=== PATIENT | female | born 2000 ===

== ENCOUNTER 2023-01-12 11:37 | Emergency (ER) | payer MEDICAID, SELFPAY ==
[2023-01-12 11:39] VITALS: BP 89/56; PULSE 86; RESP 15; TEMP 36.8; O2SAT 97
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
[2023-01-12 12:22] LABS: Bilirubin Small (Negative); Blood Trace-intact (Negative); Clarity Sl Cloudy (Clear); Glucose Negative (Negative); Ketones Negative (Negative); Leukocyte Esterase Negative (Negative); Nitrite Negative (Negative); Specific Gravity >= 1.030 (1.005-1.025); Urobilinogen 0.2 mg/dL (Up to 0.2)
[2023-01-12 12:30] LABS: Bacteria Few HPF (Negative); C & S Indicated? No/Sq. Contamination; Casts 0-2 Hyaline LPF (Negative); Crystals Negative HPF (Negative); Epithelial Cells Many HPF (Negative); Mucus Moderate (Negative); RBC 0-2 HPF (0-2)
[2023-01-12 12:35] LABS: *AMPHETAMINES SCREEN URINE Negative (Negative); *BARBITURATES SCREEN URINE Negative (Negative); *BENZODIAZEPINES SCREEN URINE Negative (Negative); Cannabinoids THC Positive (Negative); Cocaine Screen,Urine Negative (Negative); METHADONE URINE SCREEN Negative (Negative); OPIATES URINE SCREEN Negative (Negative)
[2023-01-12 12:36] LABS: Tricyclic Antidepressants Negative (Negative)
--- NOTE | 2023-01-12 14:49 | CMSP_ITS ---
Date of service: 01/12/23 Time of Service: 14:49 Care Management Safety Plan Status Status: Involuntary Reason for Wait Reason for Wait: Other (Awaiting 2nd Certification by Psychiatrist) Safety Plan Safety Plan: CHIEF COMPLAINT: Mandie presents in the ED via EMS for depression and suicidal ideation. While meeting with S[facility] Crisis Screener, Mandie becomes instantly agitated and yelling that she is going to blow her brains out and that she will meet with a psychiatrist, get discharged and then kill herself. Mandie is subsequently placed on EE status. She will remain at [facility] involuntarily and will be reassessed by [facility] twice daily until a placement is found for her. A Second Certification by Psychiatrist is expected to be perform ed within the next 24 hours. CM will continue to follow. INVOLUNTARY FOR INPATIENT PSYCHIATRIC STABILIZATION. Safety plan has been established to meet the needs of the patient, and consideration of the care team, to adhere to patient goals, identify restrictions based on behavioral status, address nutrition, and determine allowed personal belongings, tools for hygiene and personal care. Determine level of activity including ambulation, level of supervision, visitors, and determine privileges based on behaviors and level of engagement by pt. SAFETY PLAN: 1. Will remain on SI/HI precautions. Patient permitted to remain in own clothes. Clothing has been wanded by security. 2. Will remain in room under direct supervision of one-on-one staff at all times provided by CPSO, DANCER OR CHOREOGRAPHER, PATENT AGENT sewage treatment plant operator. 3. May have paper cups, plates, finger foods as well as a cardboard spoon to eat meals with. 4. Follow [facility] Management of the Admitted Behavioral Health Patient policy. 5. Comfort bath system only; shower permitted with escort at RN discretion. 6. No personal belongings with exception of clothing. 7. Visitors: None at this time 8. Activities: Soft cart items, television and other activities at RN discretion. 9. Bathroom privileges with supervision 10. Phone: May use [employer] hospital phone at RN discretion. 11. Due to INVOLUNTARY status, patient is being held at [facility] by the Department of Mental Health ([facility]) until 2nd certification by [facility] Psychiatrist can be performed (within 24 hours). Staff will provide de-escalation support (CPI) as needed. If patient wishes to leave [facility], staff will contact [facility] Crisis Screener ([phone]) and On-Call Flight Radio Operator ([phone]) as soon as possible. In the event of elopement, notify [facility] ([phone]). Patient is currently involuntarily at [facility]. [facility] Frontline Registrar [employer] will continue seeking placement. Please contact the Programmer [employer] Flight Radio Operator ) for any needed changes to Safety Plan. Safety plan has been provided to interdepartmental care team. Patient will be transported by chicken hanger at time of discharge.
--- NOTE | 2023-01-12 14:49 | PDOC.CMSAFE ---
Date of service: 01/12/23 Time of Service: 14:49 Care Management Safety Plan Status Status: Involuntary Reason for Wait Reason for Wait: Other (Awaiting 2nd Certification by Psychiatrist) Safety Plan Safety Plan: CHIEF COMPLAINT: Mandie presents in the ED via EMS for depression and suicidal ideation. While meeting with [facility] Crisis Screener, Mandie becomes instantly agitated and yelling that she is going to blow her brains out and that she will meet with a psychiatrist, get discharged and then kill herself. Mandie is subsequently placed on EE status. She will remain at [facility] involuntarily and will be reassessed by [facility] twice daily until a placement is found for her. A Second Certification by Psychiatrist is expected to be performed within the next 24 hours. CM will continue to follow. INVOLUNTARY FOR INPATIENT PSYCHIATRIC STABILIZATION. Safety plan has been established to meet the needs of the patient, and consideration of the care team, to adhere to patient goals, identify restrictions based on behavioral status, address nutrition, and determine allowed personal belongings, tools for hygiene and personal care. Determine level of activity including ambulation, level of supervision, visitors, and determine privileges based on behaviors and level of engagement by pt. SAFETY PLAN: 1. Will remain on SI/HI precautions. Patient permitted to remain in own clothes. Clothing has been wanded by security. 2. Will remain in room under direct supervision of one-on-one staff at all times provided by CPSO, GEOTHERMAL HVAC TECHNICIAN, CIVIL DESIGN SPECIALIST oracle distribution consultant. 3. May have paper cups, plates, finger foods as well as a cardboard spoon to eat meals with. 4. Follow [facility] Management of the Admitted Behavioral Health Patient policy. 5. Comfort bath system only; shower permitted with escort at RN discretion. 6. No personal belongings with exception of clothing. 7. Visitors: None at this time 8. Activities: Soft cart items, television and other activities at RN discretion. 9. Bathroom privileges with supervision 10. Phone: May use [place] hospital phone at RN discretion. 11. Due to INVOLUNTARY status, patient is being held at [facility] by the Department of Mental Health ([facility]) until 2nd certification by [facility] Psychiatrist can be performed (within 24 hours). Staff will provide de-escalation support (CPI) as needed. If patient wishes to leave [facility], staff will contact [facility] Crisis Screener ([phone]) and On-Call Brass Plater ([phone]) as soon as possible. In the event of elopement, notify [facility] ([phone]). Patient is currently involuntarily at [facility]. [facility] Frontline Manager [employer] will continue seeking placement. Please contact the Long Distance Billing Operator Brass Plater ([phone]) for any needed changes to Safety Plan. Safety plan has been provided to interdepartmental care team. Patient will be transported by shop laborer at time of discharge.
[2023-01-12] MEDS: LORazepam 1 MG TAB PO (16:32)
[2023-01-12] MEDS: LORazepam 2 MG/ML VIAL IM (18:29)
[2023-01-12] MEDS: diphenhydrAMINE 50 MG/ML VIAL 25 MG IM (18:29)
[2023-01-12] MEDS: Haloperidol 5 MG/ML VIAL IM (18:29)
[2023-01-12 18:38] LABS: Abs Immature Grans 0.03 10^3/uL (0.0-0.06); Absolute Basophil Count 0.04 10^3/uL (0.0-0.2); Absolute Eosinophil Count 0.11 10^3/uL (0.0-0.7); Absolute Monocyte Count 0.59 10^3/uL (0.1-0.8); Absolute Neutrophil Count 5.77 10^3/uL (1.2-6.7); Basophils % 0.4; Eosinophils % 1.2; HCT 38.8 % (36.0-46.0); HGB 13.6 g/dL (11.2-15.7); Immature Grans % 0.3; Lymphocytes % 31.4; MCH 31.3 pg (27.0-33.0); MCHC 35.1 % (32.0-36.0); MCV 89 fL (80-95); MPV 10.3 fL (8.0-11.0); Monocytes % 6.2; Neutrophils % 60.5; Platelet Count 302 10^3/uL (130-400); RBC 4.35 10^6/uL (3.93-5.22); RDW 11.8 % (11.7-14.6); RDW-SD 38.3 fL; WBC 9.54 10^3/uL (4.4-10.8)
[2023-01-12 19:03] LABS: ALT 44 U/L (14-59); AST 24 U/L (15-37); Albumin 4.2 g/dL (3.4-5.0); Alkaline Phosphatase 79 U/L (46-116); Anion Gap 12.6 mmol/L (3-11); BUN 6 mg/dL (7-18); Bilirubin, Total 0.6 mg/dL (0.2-1.0); CO2 22.4 mmol/L (21.0-32.0); CREATININE 0.9 mg/dL (0.55-1.02); Calcium 9.7 mg/dL (8.5-10.1); Chloride 104 mmol/L (98-107); Estimated GFR 93.86 (mL/min/1.73m2); Glucose 126 mg/dL (74-106); Magnesium 1.9 mg/dL (1.8-2.4); Potassium 3.7 mmol/L (3.5-5.1); Sodium 139 mmol/L (136-145); TSH (W/Ref FT4) 1.62 uIU/mL (0.36-3.74); Total Protein 7.9 g/dL (6.4-8.2)
[2023-01-12 19:06] LABS: ETHANOL BLOOD < 3.0 mg/dL (<10)
[2023-01-12 19:20] LABS: Acetaminophen < 2 ug/mL (10-30); Salicylate < 2.8 mg/dL (<2.8)
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
--- NOTE | 2023-01-12 22:33 | NUR.NOTE ---
Report received at 0029 by Jackie SANCHEZ, this RN assumed care at this time, pt is resting with eyes closed, even and unlabored respirations.
--- NOTE | 2023-01-13 07:19 | W.EDPROG ---
Date of service: 01/13/23 Time of Service: 07:19 Medical Decision Making Patient remained stable throughout the night. No interventions needed. Patient resting comfortably. Awaiting placement. Sign Out Sign Out Data: Sign Out Comment: on EE status for SI, had im benadryl/haldol/ativan given x1 during shift, second cert completed seeking placement. Last updated by Will Goode MD at 01/12/23 18:42 Discharge Plan Discharge Details Chief Complaint: PsychEval Clinical Impression: Suicidal ideations Primary Care Provider: Unknown,Unknown ED Provider: Ari Dietrich Home Meds and New Rx's Prescriptions: No Action ergocalciferol (vitamin D2) 50,000 unit Tablet 50,000 unit PO 7XD gabapentin 300 mg capsule 300 mg PO DAILY Entyvio 300 mg Recon Soln 300 mg IV [id number] Rx Instructions: EVERY OTHER MONTH IV
[2023-01-13] MEDS: LORazepam 2 MG/ML VIAL IM (09:10)
--- NOTE | 2023-01-13 10:42 | W.EDPROG ---
Date of service: 01/13/23 Time of Service: 10:42 Medical Decision Making -- Care was signed out by Dr. Dietrich. Please see his documentation and prior physician documentation regarding ED course. Plan at signout was to await for psychiatric treatment center placement. Patient is here involuntarily on EE status with both initial and second certification performed. --Patient tearful and having some anxiety. Requesting anxiolytic. Ativan 2 mg IM was excepted voluntarily. 1042 --notified by nursing that patient was having seizure-like activity. I assessed the patient and she was exhibiting full body shaking. Patient did have voluntary control of her arms during the episode. Suspected pseudoseizure. I advised patient that when she is able to calm down and verbalize we will be able to give her some additional anxiolytic. Patient was quickly able to stop shaking and verbalized that she would be interested in anxiolytic. -- Patient reassessed was much more calm and resting. 1259 --[place] [facility] physician Nelly Harris called, I relayed ED course including events from today, she will accept the patient in transfer. Awaiting bed availability. Sign Out Sign Out Data: Sign Out Comment: on EE status for SI, had im benadryl/haldol/ativan given x1 during shift, second cert completed seeking placement. Last updated by Will Goode MD at 01/12/23 18:42 Sign Out Comment: Patient is EE, patient stable throughout the night. Second certification is completed, currently seeking placement. Last updated by Ari Dietrich DO at 01/13/23 07:27 Discharge Plan Disposition Patient Disposition: Psychiatric Hospital/Unit Specific Psychiatric Facility: [facility] Discharge Details Clinical Impression: Suicidal ideations, Anxiety Primary Care Provider: Unknown,Unknown ED Provider: Kevin Henderson Home Meds and New Rx's Prescriptions: No Action ergocalciferol (vitamin D2) 50,000 unit Tablet 50,000 unit PO 7XD gabapentin 300 mg capsule 300 mg PO DAILY Entyvio 300 mg Recon Soln 300 mg IV [id number] Rx Instructions: EVERY OTHER MONTH IV
[2023-01-13] MEDS: diphenhydrAMINE 50 MG/ML VIAL 25 MG IM (10:56)
[2023-01-13] MEDS: Droperidol 5 MG/2 ML VIAL 2.5 MG IM (10:57)
[2023-01-13] MEDS: Midazolam 2 MG/2 ML VIAL 4 MG IM (10:57)
--- NOTE | 2023-01-13 10:58 | NUR.NOTE ---
Nursing Note: Pt appearing to have seizure-like activity while MH was in the room. MD Henderson in to asess the pt, medication orders given and administered by this RN.
[2023-01-13 11:17] VITALS: RESP 14
[2023-01-13 11:30] VITALS: RESP 16
--- NOTE | 2023-01-13 12:14 | PDOC.MHCN_ITS ---
Date of service: 01/13/23 Time of Service: 12:14 Mental Health Emergency Note Release [facility] release signed:: Yes Reason for Visit The client arrived to the ED on 01.12.23 via [place] ambulance. The EMT reported that they did not believe she would be treated well at [facility] so [facility] The client would not engage in a full assessment on the day of arrival or today so information is limited. This clinician and the ED provider wrote up EE paperwork on 01.12.23 and the client was held. Her seconde certification from [facility] was completed last night and the EE was upheld. In the last 2 weeks has the pt presented for ES prior to today?: Unknown Client Information Client is: New Well Housed: Yes Non Suicidal Self Injury Current: Yes, The client showed bruising on her chest area where she described she beats herself and cannot control it. History: yes, See above Safety Risk/Harm to Self or Others Current Ideation to Harm Self or Others: Yes to self. (The client is denying this today. ) Intent: no, has no intent. Plan: no.does not have a plan. History of suicide attempt: yes,history of suicide attempt reported. Details of previous suicide attempt: On per the client's report she intentionally overdosed on Potassium in an effort to stop my heart. Risk: Does risk to harm exist?: yes. Access to means: Yes. Types of Means: Other weapons and Medication. Counseling provided: Yes Risk: High Risk Duty to warn indicated: No Asssessment/Mental Status Appearance: Disheveled Attitude: Other (Cooperative however, perseverating on what she cannot have. ) Behavior: Repetitive movements and Other (The client is having pseudoseizures. ) Speech: Loud and Slurred Affect: Cogruent with mood Mood: Elevated, Stressed, Depressed and Anxious Thought process: Goal directed Hallucinations: No Delusions: No Attention: Unremarkable Perception: Not impaired Orientation: Fully orientated Memory: Intact Insight: Poor Judgement: Poor Neurovegetative Symptoms Sleep: Decrease Appetitie: Decrease Interests: Decrease Energy: Decrease Libido: Not applicable Substance Use: Drug Issues: Drug screen result (positive for THC.) Do you use nicotine?: Yes Additional Issues: Assaultive/Threatening Behavior: No Medical Concerns: No Client engaged in active self harm w/weapon: No Threatening to run away: No Child reported abuse/neglect: No Voluntarily presenting for services: No Domestic violence is a concern: No Extreme Psychosis or extreme behavior is present: Yes Impression The client is a 22 year old, single, female who presented to the ED on 01.12.23 via [place] ambulance. She presents as having a deregulated mood an d is tearful and speaking loudly. She is not as loud as she was upon arrival where she was tearful and screaming. She is still loudly crying I need to go home that most other statements are inaudible. She denied SI and HI today again repeating she needs to go home and be with her family. She reported that she is not eating much and her sleep was poor. She is emotionally labile and endorses depression. The clients symptoms are consistent with a MDD as well as KADEN. On two different occasions she was observed to be having what Dr. Henderson described as pseudo seizures. Plan/Disposition Recommended Disposition: Hospitalization facilities contacted. Plan: The client was accepted to [facility]. Transport with [facility] could not happen today due to other transports happening with [facility] however, [facility]'s Dept was agreeable to transport and will be at the ED approximately 4:30pm. Person reported agreement to plan: No Facilities contacted if Applicable [facility] Accepted, Accepted/transfer pending. Information Sent to [place]: Referral and Insurance prior authorization Reports/communication Outcome discussed with: ED/Personnel
--- NOTE | 2023-01-13 14:04 | NUR.NOTE ---
Nurse to Nurse report given to Uma from [facility]. The desk will arrange for transportation to the retreat.
== END 2023-01-13 16:40 ==
PROVIDERS: Emergency Medicine; Emergency Provider Student in an Organized Health Care Education/Training Program
DX: R45.851 Suicidal ideations (principal); F32.A Depression, unspecified; R41.9 Unspecified symptoms and signs involving cognitive functions and awareness; R45.1 Restlessness and agitation; F17.290 Nicotine dependence, other tobacco product, uncomplicated
CPT/HCPCS: 80053; 80307; 96372; 99285; 80320; 80329; 81003; 81015; 83735; 84443; 85025; J1200; J1630; J1790; J2060; J2250